=== PATIENT | female | born 1995 | race Asian ===

== ENCOUNTER 2017-05-24 20:53 | Emergency (ER) | payer SELFPAY ==
[~2017-05-24] VITALS: Ht 167.6 cm; Wt 58.0 kg
[2017-05-24] MEDS ORDERED: ACETAMINOPHEN 500 MG TABLET PO ONE (21:45)
[2017-05-24 22:17] LABS: INFLUENZA TYPE B NEGATIVE FOR TYPE B (NEGATIVE)
[2017-05-24 22:30] VITALS: BP 118/76
== END 2017-05-24 22:55 | disposition home or self-care (01) ==
LOC: EMS 20:56
DX: J40 Bronchitis, not specified as acute or chronic (principal); F17.200 Nicotine dependence, unspecified, uncomplicated
CPT/HCPCS: 71020; 87804; 99285

== ENCOUNTER 2018-12-01 15:14 | Emergency (ER) | payer SELFPAY ==
[~2018-12-01] VITALS: Ht 167.6 cm; Wt 59.0 kg
[2018-12-01] MEDS ORDERED: KETOROLAC TROMETHAMINE 10 MG TABLET PO ONE (16:45)
[2018-12-01 18:43] VITALS: BP 121/66
== END 2018-12-01 18:56 | disposition home or self-care (01) ==
LOC: EMS 15:14
DX: S62.345A Nondisplaced fracture of base of fourth metacarpal bone, left hand, initial encounter for closed fracture (principal); S62.347A Nondisplaced fracture of base of fifth metacarpal bone, left hand, initial encounter for closed fracture; F17.210 Nicotine dependence, cigarettes, uncomplicated; W22.8XXA Striking against or struck by other objects, initial encounter; Y93.89 Activity, other specified; Y92.89 Other specified places as the place of occurrence of the external cause; Y99.8 Other external cause status

== ENCOUNTER → 2019-09-02 | Outpatient (CLI) | payer MEDICAID | END | disposition home or self-care (01) | LOC: PUC 17:32 | DX: J18.1 Lobar pneumonia, unspecified organism (principal) ==

== ENCOUNTER 2019-09-03 16:52 | Emergency (ER) | payer MEDICAID ==
[~2019-09-03] VITALS: Ht 172.7 cm; Wt 61.4 kg
[2019-09-03 19:11] VITALS: BP 106/69
[2019-09-03] MEDS ORDERED: AZITHROMYCIN 250 MG TABLET PO ONE (19:15)
== END 2019-09-03 19:25 | disposition home or self-care (01) ==
LOC: EMS 17:03
DX: J18.9 Pneumonia, unspecified organism (principal); F17.210 Nicotine dependence, cigarettes, uncomplicated

== ENCOUNTER 2020-02-24 18:14 | Emergency (ER) | payer MEDICAID ==
[~2020-02-24] VITALS: Ht 167.6 cm; Wt 59.1 kg
[2020-02-24] MEDS ORDERED: DIPH25 PO (18:17)
[2020-02-24] MEDS ORDERED: FAMOTIDINE 20 MG TABLET PO STA (20:19)
[2020-02-24 20:20] VITALS: BP 98/61
[2020-02-24] MEDS ORDERED: DiphenhydrAMINE HCL 50 MG/ML VIAL IM ONE (20:30)
[2020-02-24] MEDS ORDERED: DEXAMETHASONE SOD PHOS 4 MG/ML 5 ML VIAL IM ONE (20:30)
== END 2020-02-24 21:06 | disposition home or self-care (01) ==
LOC: EMS 18:14
DX: L50.9 Urticaria, unspecified (principal); R21 Rash and other nonspecific skin eruption; F12.90 Cannabis use, unspecified, uncomplicated; F17.210 Nicotine dependence, cigarettes, uncomplicated
CPT/HCPCS: 96372; 99284; J1100; J1200

== ENCOUNTER 2024-11-03 16:32 | Emergency (ER) | payer MEDICAID ==
[~2024-11-03] VITALS: Ht 167.6 cm; Wt 70.5 kg
[~2024-11-03 16:32] MED LIST: DIPH-1243 PO
[2024-11-03 17:05] VITALS: BP 96/47; PULSE 86; RESP 16; TEMP 98.2; O2SAT 99
== END 2024-11-03 19:28 | disposition home or self-care (01) ==
LOC: EMS 16:41
DX: S60.221A Contusion of right hand, initial encounter (principal); H00.012 Hordeolum externum right lower eyelid; W22.8XXA Striking against or struck by other objects, initial encounter; Y93.89 Activity, other specified; Y92.89 Other specified places as the place of occurrence of the external cause; Y99.8 Other external cause status
CPT/HCPCS: 99283

== ENCOUNTER 2025-05-06 21:47 | Emergency (ER) | payer MEDICAID ==
[~2025-05-06] VITALS: Ht 170.2 cm; Wt 77.3 kg
[2025-05-06 22:43] LABS: COVID AG,FIA SOURCE NASAL SWAB
[2025-05-06] MEDS: SODIUM CHLORIDE 0.9% 1,000 ML IV ONE (22:57)
[2025-05-06 22:58] VITALS: BP 127/57; PULSE 104; RESP 16; TEMP 98.7; O2SAT 96
[2025-05-06 23:01] LABS: PLATELET COUNT (AUTO) 295 K/uL (150-450); RED BLOOD CELL COUNT(AUTO) 4.60 MIL/uL (4.00-5.20); RED CELL DISTRIBUTION WIDTH 12.6 % (11.5-14.5); WHITE BLOOD COUNT (AUTO) 8.9 K/uL (4.5-11.0)
[2025-05-06 23:03] LABS: INFLUENZA TYPE A NEGATIVE FOR TYPE A (NEGATIVE); INFLUENZA TYPE B NEGATIVE FOR TYPE B (NEGATIVE); SARS-COV2 (COVID) ANTIGEN,FIA Negative (Negative)
[2025-05-06 23:05] LABS: CALCIUM, TOTAL 8.7 mg/dL (8.8-10.5); CREATININE 0.85 mg/dL (0.60-1.30); GLOMERULAR FILTR. RATE CALC > 60 mL/min (>60); GLUCOSE,RANDOM 114 mg/dL (70-110); SODIUM SERUM 134 mmol/L (136-145); UREA NITROGEN, BLOOD 11 mg/dL (7-18)
[2025-05-06 23:17] LABS: BAND NEUTROPHILS % (MANUAL) 8 % (0-5); LYMPHOCYTES % (MANUAL) 11 % (22-44); MONOCYTES % (MANUAL) 5 % (2-9); RBC MORPHOLOGY COMMENT NORMAL RBC MORPH; SEGMENTED NEUTROPHILS % 76 % (40-70); WBC MORPHOLOGY TOXIC VACUOLATION
[2025-05-06] MEDS: METOCLOPRAMIDE HCL 5 MG/ML 2 ML VIAL IVP ONE (23:32)
== END 2025-05-07 01:27 | disposition home or self-care (01) ==
LOC: EMS 21:47
DX: K52.9 Noninfective gastroenteritis and colitis, unspecified (principal); E86.0 Dehydration; R00.0 Tachycardia, unspecified; R11.2 Nausea with vomiting, unspecified; F10.90 Alcohol use, unspecified, uncomplicated; Z87.891 Personal history of nicotine dependence; Z79.899 Other long term (current) drug therapy; Z20.822 Contact with and (suspected) exposure to COVID-19; Y90.9 Presence of alcohol in blood, level not specified
CPT/HCPCS: 99285; 96374; 96361; 87426; 80048; 84703; 85025; 87804; 36415; 74018; 93005; G0480; J2765; J7030